=== PATIENT | male | born 1960 | race African-American/Black ===

== ENCOUNTER 2021-01-04 10:54 | Inpatient (IN) | payer OTHER, SELFPAY ==
[2021-01-04 11:49] LABS: #Eosinphils 0.2 10x3/uL (0.0-0.5); #Monocytes 1.2 10x3/uL (0.0-1.1); #Neutrophils 8.9 10x3/uL (1.5-8.4); %Basophils 0.3 % (0.0-2.0); %Eosinophils 1.4 % (0.0-6.0); %Lymphocytes 10.1 % (18.0-47.0); %Monocytes 10.4 % (0.0-10.0); %Neutrophils 77.3 % (40.0-75.0); Hemoglobin 17.2 g/dL (13.5-17.5); Mean Corpuscular HGB CONC 35.8 g/dL (32.0-36.0); Mean Corpuscular Hemoglobin 32.4 pg (27.0-33.0); Mean Corpuscular Volume 90.4 fl (81.2-95.1); Mean Platelet Volume 12.2 fl (7.4-10.4); Platelet Count 222 10x3/uL (150-450); RBC Distribution Width 11.9 % (11.5-14.5); Red Blood Cell (RBC) Count 5.31 10x6/uL (4.32-5.72); White Blood Cell (WBC) Count 11.5 10x3/uL (3.5-10.5)
[2021-01-04] MEDS ORDERED: Morphine 4 MG/ML VIAL ONE (11:49)
[2021-01-04] MEDS ORDERED: Ondansetron PF 4 MG/2 ML Vial ONE (11:49)
[2021-01-04 13:53] LABS: ALT (SGPT) 25 U/L (8-55); AST (SGOT) 26 U/L (5-34); Albumin 3.6 g/dL (3.5-5.0); Alkaline Phosphatase 81 U/L (40-110); Anion Gap 15 mmol/L (10-20); BUN (Urea Nitrogen) 16 mg/dL (8.4-25.7); Bilirubin, Total 1.2 mg/dL (0.2-1.2); CK (CPK) 39 U/L (30-200); Calc. Creatinine Clearance 0 mL/min (70-130); Calcium 9.4 mg/dL (7.8-10.44); Carbon Dioxide 28 mmol/L (22-29); Chloride 95 mmol/L (98-107); Globulin 2.8 g/dL (2.4-3.5); Glucose 102 mg/dL (70-105); Lipase 22 U/L (8-78); Protein, Total 6.4 g/dL (6.0-8.3); Sodium 135 mmol/L (136-145)
[2021-01-04 14:45] LABS: Bilirubin Neg (Negative); Blood, Urine Negative (Negative); Clarity Clear (Clear); Glucose, Urine (Dipstick) Normal (Negative); Ketone, Urine 50 mg/dL (Negative); Leukocyte Negative (Negative); Nitrite Negative (Negative); Protein, Urine (Dipstick) 15 mg/dl (Neg-Trace); Urobilinogen Normal mg/dL (Less than 2)
[2021-01-04] MEDS ORDERED: Piperacillin/Tazobactam 3.375 GM VIAL ONE (15:06)
[2021-01-04] MEDS ORDERED: Potassium Chloride 20 MEQ TAB ONE (15:06)
[2021-01-04] MEDS ORDERED: Acetaminophen 325 MG TAB PO PRN (15:46)
[2021-01-04 16:47] LABS: Magnesium 1.9 mg/dL (1.6-2.6)
[2021-01-04] MEDS ORDERED: Piperacillin/Tazobactam 3.375 GM in Sodium Chloride 0.9% 100 ML IVPB SCH ×2 (18:00→21:30)
[2021-01-04 19:23] LABS: SARS-CoV-2 NAA Rapid Test Not Detected (NotDetected)
[2021-01-04] MEDS ORDERED: Multivit, Therapeutic 1 TAB PO SCH (21:00)
[2021-01-04] MEDS ORDERED: Amlodipine 10 MG TAB PO SCH (21:00)
[2021-01-04] MEDS ORDERED: Folic Acid 1 MG TAB PO SCH (21:00)
[2021-01-04 22:36] VITALS: BMI 31.9
[2021-01-04] MEDS: Morphine 2 MG/ML VIAL SLOW IVP PRN (23:12)
[2021-01-05] MEDS: Lactated Ringer's 1,000 ML IV SCH ×3 (00:33→17:31)
[2021-01-05] MEDS: HYDROcodone/Acetaminophen 10/325 mg Tablet PO PRN ×3 (00:48→20:35)
[2021-01-05] MEDS ORDERED: Piperacillin/Tazobactam 3.375 GM in Sodium Chloride 0.9% 100 ML IVPB SCH (01:30)
[2021-01-05] MEDS ORDERED: Multivit, Therapeutic 1 TAB PO SCH (02:30)
[2021-01-05] MEDS: Piperacillin/Tazobactam 3.375 GM in Sodium Chloride 0.9% 100 ML IVPB SCH ×3 (03:15→18:46)
[2021-01-05] MEDS ORDERED: Piperacillin/Tazobactam 3.375 GM VIAL ONE (03:22)
[2021-01-05 06:11] LABS: #Eosinphils 0.2 10x3/uL (0.0-0.5); #Neutrophils 6.7 10x3/uL (1.5-8.4); %Basophils 0.2 % (0.0-2.0); %Eosinophils 2.4 % (0.0-6.0); %Lymphocytes 11.3 % (18.0-47.0); %Monocytes 11.4 % (0.0-10.0); %Neutrophils 74.3 % (40.0-75.0); Hemoglobin 15.4 g/dL (13.5-17.5); Mean Corpuscular HGB CONC 35.3 g/dL (32.0-36.0); Mean Corpuscular Hemoglobin 32.8 pg (27.0-33.0); Mean Corpuscular Volume 92.8 fl (81.2-95.1); Platelet Count 207 10x3/uL (150-450); RBC Distribution Width 11.9 % (11.5-14.5)
[2021-01-05 06:14] LABS: Anion Gap 19 mmol/L (10-20); BUN (Urea Nitrogen) 16 mg/dL (8.4-25.7); Calc. Creatinine Clearance 126 mL/min (70-130); Calcium 9.3 mg/dL (7.8-10.44); Carbon Dioxide 22 mmol/L (22-29); Chloride 101 mmol/L (98-107); Glucose 101 mg/dL (70-105); Sodium 139 mmol/L (136-145)
[2021-01-05] MEDS ORDERED: Potassium Chloride 40 MEQ in Premix Bag 1 BAG IVPB SCH (08:30)
[2021-01-05] MEDS: Folic Acid 1 MG TAB PO SCH (08:52)
[2021-01-05] MEDS: Thiamine 100 MG TAB PO SCH (08:52)
[2021-01-05] MEDS: Amlodipine 10 MG TAB PO SCH (08:52)
[2021-01-05] MEDS: Multivit, Therapeutic 1 TAB PO SCH (08:53)
[2021-01-05] MEDS ORDERED: Prevnar 13-Val Conj/PF 0.5 ML SYRINGE IM ONE (09:00)
[2021-01-05] MEDS: Potassium Chloride 20 MEQ in Premix Bag 1 BAG IVPB SCH ×3 (12:22→14:34)
[2021-01-06] MEDS: Morphine 2 MG/ML VIAL SLOW IVP PRN (02:00)
[2021-01-06] MEDS: Lactated Ringer's 1,000 ML IV SCH ×2 (02:03→14:51)
[2021-01-06] MEDS: HYDROcodone/Acetaminophen 10/325 mg Tablet PO PRN ×2 (02:46→08:44)
[2021-01-06] MEDS: Ondansetron PF 4 MG/2 ML Vial IVP PRN (02:47)
[2021-01-06] MEDS: Piperacillin/Tazobactam 3.375 GM in Sodium Chloride 0.9% 100 ML IVPB SCH ×3 (04:18→21:19)
[2021-01-06 08:28] LABS: Mean Corpuscular HGB CONC 33.9 g/dL (32.0-36.0); Mean Corpuscular Hemoglobin 32.4 pg (27.0-33.0); Mean Corpuscular Volume 95.6 fl (81.2-95.1); Mean Platelet Volume 11.7 fl (7.4-10.4); Platelet Count 236 10x3/uL (150-450); RBC Distribution Width 11.9 % (11.5-14.5); Red Blood Cell (RBC) Count 5.25 10x6/uL (4.32-5.72); White Blood Cell (WBC) Count 10.6 10x3/uL (3.5-10.5)
[2021-01-06 08:37] LABS: Anion Gap 20 mmol/L (10-20); BUN (Urea Nitrogen) 15 mg/dL (8.4-25.7); Calc. Creatinine Clearance 108 mL/min (70-130); Calcium 9.6 mg/dL (7.8-10.44); Carbon Dioxide 20 mmol/L (22-29); Chloride 101 mmol/L (98-107); Glucose 137 mg/dL (70-105); Potassium 3.6 mmol/L (3.5-5.1); Sodium 137 mmol/L (136-145)
[2021-01-06] MEDS: Folic Acid 1 MG TAB PO SCH (08:39)
[2021-01-06] MEDS: Thiamine 100 MG TAB PO SCH (08:39)
[2021-01-06] MEDS: Multivit, Therapeutic 1 TAB PO SCH (08:40)
[2021-01-06] MEDS: Amlodipine 10 MG TAB PO SCH (08:40)
[2021-01-06 09:23] LABS: Band 7 % (5-11); Lymphocytes 4 % (21-51); MDiff Complete? YES; Monocytes 5 % (0-10); Neutrophil 83 % (42-75); Reactive Lymphocytes 1 % (0-10)
[2021-01-06 09:24] LABS: Large Platelets SLIGHT; Platelet Morphology Comment Appears Adequate; RBC Morphology Normal
[2021-01-06] MEDS ORDERED: ePHEDrine Sulfate 50 MG/10 ML VIAL ONE (14:44)
[2021-01-06] MEDS ORDERED: PROPOFOL 20 ML ONE (14:44)
[2021-01-06] MEDS ORDERED: Lidocaine 1% PF 5 ML VIAL ONE (14:45)
[2021-01-06] MEDS ORDERED: Ondansetron PF 4 MG/2 ML Vial ONE (14:45)
[2021-01-06] MEDS ORDERED: Rocuronium Bromide 10 MG/ML (10ML VIAL) ONE (14:45)
[2021-01-06] MEDS ORDERED: Dexamethasone 4 mg/ml Vial ONE (14:46)
[2021-01-06] MEDS ORDERED: Fentanyl 250 MCG/5 ML VIAL ONE (14:47)
[2021-01-06] MEDS ORDERED: Succinylcholine 200 MG/10 ml SYRINGE FS ONE (14:50)
[2021-01-06] MEDS ORDERED: PHENYLEPHRINE-NS 100 MCG/ML 10 ML SYRINGE ONE (15:21)
[2021-01-06] MEDS ORDERED: Bupivacaine PF 0.5% 30 ML VIAL ONE (16:22)
[2021-01-06] MEDS ORDERED: Albumin 5% 250 ML ONE (17:47)
[2021-01-06] MEDS ORDERED: HYDROmorphone 10 MG in Sodium Chloride 0.9% 95 ML IVPB PRN (19:00)
[2021-01-06] MEDS ORDERED: Ondansetron PF 4 MG/2 ML Vial IVP PRN (19:00)
[2021-01-06] MEDS ORDERED: Naloxone HCl 0.4 mg/ml Vial IV PRN (19:00)
[2021-01-06] MEDS ORDERED: HYDROMORPHONE HCL IVPB PRN (20:16)
[2021-01-06] MEDS ORDERED: SODIUM CHLORIDE 0.9% IVPB PRN (20:16)
[2021-01-07] MEDS: Piperacillin/Tazobactam 3.375 GM in Sodium Chloride 0.9% 100 ML IVPB SCH ×3 (03:59→18:17)
[2021-01-07] MEDS: Lactated Ringer's 1,000 ML IV SCH ×3 (04:46→23:14)
[2021-01-07] MEDS: Thiamine 100 MG TAB PO SCH (08:16)
[2021-01-07] MEDS: Folic Acid 1 MG TAB PO SCH (08:16)
[2021-01-07] MEDS: Multivit, Therapeutic 1 TAB PO SCH (08:16)
[2021-01-07] MEDS: Amlodipine 10 MG TAB PO SCH (08:17)
[2021-01-07 10:23] LABS: Hemoglobin 15.2 g/dL (13.5-17.5); Mean Corpuscular HGB CONC 34.2 g/dL (32.0-36.0); Mean Corpuscular Hemoglobin 32.5 pg (27.0-33.0); Mean Corpuscular Volume 95.1 fl (81.2-95.1); Mean Platelet Volume 12.2 fl (7.4-10.4); Platelet Count 210 10x3/uL (150-450); RBC Distribution Width 12.4 % (11.5-14.5); Red Blood Cell (RBC) Count 4.68 10x6/uL (4.32-5.72); White Blood Cell (WBC) Count 12.2 10x3/uL (3.5-10.5)
[2021-01-07 10:28] LABS: Anion Gap 18 mmol/L (10-20); BUN (Urea Nitrogen) 12 mg/dL (8.4-25.7); Calc. Creatinine Clearance 123 mL/min (70-130); Calcium 8.7 mg/dL (7.8-10.44); Carbon Dioxide 22 mmol/L (22-29); Glucose 138 mg/dL (70-105); Potassium 3.7 mmol/L (3.5-5.1); Sodium 140 mmol/L (136-145)
[2021-01-07 10:33] LABS: Chloride 104 mmol/L (98-107)
[2021-01-07 11:13] LABS: MDiff Complete? YES
[2021-01-07 11:16] LABS: Band 12 % (5-11); Lymphocytes 11 % (21-51); Monocytes 10 % (0-10); Neutrophil 66 % (42-75); Reactive Lymphocytes 1 % (0-10)
[2021-01-07 11:17] LABS: Platelet Morphology Comment Appears Adequate; RBC Morphology Normal
[2021-01-07] MEDS ORDERED: HYDROmorphone HCL/PF 10 MG in Sodium Chloride 0.9% 49 ML IVPB PRN (13:15)
[2021-01-07] MEDS: Ondansetron PF 4 MG/2 ML Vial IVP PRN (23:09)
[2021-01-08] MEDS: Piperacillin/Tazobactam 3.375 GM in Sodium Chloride 0.9% 100 ML IVPB SCH ×3 (02:48→19:00)
[2021-01-08 06:31] LABS: #Neutrophils 15.3 10x3/uL (1.5-8.4); %Basophils 0.2 % (0.0-2.0); %Eosinophils 0.1 % (0.0-6.0); %Lymphocytes 3.7 % (18.0-47.0); %Monocytes 5.9 % (0.0-10.0); %Neutrophils 89.2 % (40.0-75.0); Hemoglobin 16.9 g/dL (13.5-17.5); Mean Corpuscular HGB CONC 33.9 g/dL (32.0-36.0); Mean Corpuscular Hemoglobin 32.1 pg (27.0-33.0); Mean Corpuscular Volume 94.7 fl (81.2-95.1); Mean Platelet Volume 11.4 fl (7.4-10.4); Platelet Count 230 10x3/uL (150-450); RBC Distribution Width 12.2 % (11.5-14.5); Red Blood Cell (RBC) Count 5.27 10x6/uL (4.32-5.72); White Blood Cell (WBC) Count 17.1 10x3/uL (3.5-10.5)
[2021-01-08 06:49] LABS: Anion Gap 18 mmol/L (10-20); BUN (Urea Nitrogen) 10 mg/dL (8.4-25.7); Calc. Creatinine Clearance 147 mL/min (70-130); Calcium 9.4 mg/dL (7.8-10.44); Carbon Dioxide 21 mmol/L (22-29); Chloride 105 mmol/L (98-107); Glucose 129 mg/dL (70-105); Potassium 3.4 mmol/L (3.5-5.1); Sodium 141 mmol/L (136-145)
[2021-01-08] MEDS: Folic Acid 1 MG TAB PO SCH (08:46)
[2021-01-08] MEDS: Lactated Ringer's 1,000 ML IV SCH ×2 (08:46→18:42)
[2021-01-08] MEDS: Multivit, Therapeutic 1 TAB PO SCH (08:46)
[2021-01-08] MEDS: Amlodipine 10 MG TAB PO SCH (08:46)
[2021-01-08] MEDS: Thiamine 100 MG TAB PO SCH (08:46)
[2021-01-08] MEDS ORDERED: Potassium Chloride 20 MEQ TAB PO SCH (09:15)
[2021-01-08] MEDS ORDERED: Piperacillin/Tazobactam 3.375 GM VIAL ONE (10:32)
[2021-01-08] MEDS: cloNIDine 0.1 MG TAB PO SCH (21:22)
[2021-01-09] MEDS ORDERED: Promethazine HCl 12.5 MG, Admixture Fee 1 EACH in Sodium Chloride 0.9% 50 ML IVPB PRN
[2021-01-09] MEDS: Piperacillin/Tazobactam 3.375 GM in Sodium Chloride 0.9% 100 ML IVPB SCH ×3 (03:45→18:30)
[2021-01-09] MEDS: Lactated Ringer's 1,000 ML IV SCH (06:00)
[2021-01-09 07:19] LABS: #Eosinphils 0.1 10x3/uL (0.0-0.5); #Neutrophils 13.7 10x3/uL (1.5-8.4); %Basophils 0.3 % (0.0-2.0); %Eosinophils 0.3 % (0.0-6.0); %Lymphocytes 5.8 % (18.0-47.0); %Monocytes 6.2 % (0.0-10.0); %Neutrophils 86.3 % (40.0-75.0); Mean Corpuscular Hemoglobin 32.1 pg (27.0-33.0); Mean Corpuscular Volume 94.2 fl (81.2-95.1); Mean Platelet Volume 11.4 fl (7.4-10.4); Platelet Count 285 10x3/uL (150-450); RBC Distribution Width 12.2 % (11.5-14.5); Red Blood Cell (RBC) Count 4.99 10x6/uL (4.32-5.72); White Blood Cell (WBC) Count 15.9 10x3/uL (3.5-10.5)
[2021-01-09 07:26] LABS: Anion Gap 14 mmol/L (10-20); BUN (Urea Nitrogen) 12 mg/dL (8.4-25.7); Calc. Creatinine Clearance 151 mL/min (70-130); Calcium 9.7 mg/dL (7.8-10.44); Carbon Dioxide 28 mmol/L (22-29); Chloride 102 mmol/L (98-107); Glucose 141 mg/dL (70-105); Potassium 3.3 mmol/L (3.5-5.1); Sodium 141 mmol/L (136-145)
[2021-01-09] MEDS: Multivit, Therapeutic 1 TAB PO SCH (08:57)
[2021-01-09] MEDS: Folic Acid 1 MG TAB PO SCH (08:57)
[2021-01-09] MEDS: cloNIDine 0.1 MG TAB PO SCH ×2 (08:57→22:25)
[2021-01-09] MEDS: Thiamine 100 MG TAB PO SCH (08:57)
[2021-01-09] MEDS: Amlodipine 10 MG TAB PO SCH (08:57)
[2021-01-09] MEDS ORDERED: Lactated Ringer's 1,000 ML IV SCH (09:59)
[2021-01-09] MEDS ORDERED: Potassium Chloride 20 MEQ TAB PO SCH ×2 (10:00→19:00)
[2021-01-09] MEDS ORDERED: hydrALAZINE 25 MG TAB PO SCH (10:30)
[2021-01-09 13:29] LABS: Anion Gap 13 mmol/L (10-20); BUN (Urea Nitrogen) 14 mg/dL (8.4-25.7); Calc. Creatinine Clearance 143 mL/min (70-130); Calcium 9.7 mg/dL (7.8-10.44); Carbon Dioxide 28 mmol/L (22-29); Chloride 102 mmol/L (98-107); Glucose 133 mg/dL (70-105); Potassium 3.1 mmol/L (3.5-5.1); Sodium 140 mmol/L (136-145)
[2021-01-09] MEDS ORDERED: HYDROcodone/Acetaminophen 5/325 mg Tablet PO PRN (15:05)
[2021-01-09] MEDS ORDERED: Morphine 2 MG/ML VIAL SLOW IVP PRN (15:05)
[2021-01-09] MEDS ORDERED: Potassium Chloride 20 MEQ in Lactated Ringer's 1,000 ML IV SCH (21:00)
[2021-01-09] MEDS: hydrALAZINE 25 MG TAB PO SCH (22:24)
[2021-01-10] MEDS: Piperacillin/Tazobactam 3.375 GM in Sodium Chloride 0.9% 100 ML IVPB SCH (03:34)
[2021-01-10 05:58] LABS: Anion Gap 14 mmol/L (10-20); BUN (Urea Nitrogen) 15 mg/dL (8.4-25.7); Calc. Creatinine Clearance 139 mL/min (70-130); Calcium 9.5 mg/dL (7.8-10.44); Carbon Dioxide 27 mmol/L (22-29); Chloride 101 mmol/L (98-107); Glucose 117 mg/dL (70-105); Potassium 3.2 mmol/L (3.5-5.1); Sodium 139 mmol/L (136-145)
[2021-01-10 06:09] LABS: #Eosinphils 0.3 10x3/uL (0.0-0.5); #Monocytes 1.1 10x3/uL (0.0-1.1); #Neutrophils 12.3 10x3/uL (1.5-8.4); %Basophils 0.3 % (0.0-2.0); %Eosinophils 1.7 % (0.0-6.0); %Lymphocytes 8.1 % (18.0-47.0); %Monocytes 7.5 % (0.0-10.0); %Neutrophils 81.8 % (40.0-75.0); Hemoglobin 15.2 g/dL (13.5-17.5); Mean Corpuscular HGB CONC 33.5 g/dL (32.0-36.0); Mean Corpuscular Hemoglobin 31.9 pg (27.0-33.0); Mean Corpuscular Volume 95.2 fl (81.2-95.1); Mean Platelet Volume 11.3 fl (7.4-10.4); Platelet Count 272 10x3/uL (150-450); RBC Distribution Width 12.4 % (11.5-14.5); Red Blood Cell (RBC) Count 4.77 10x6/uL (4.32-5.72)
[2021-01-10] MEDS: Multivit, Therapeutic 1 TAB PO SCH (09:15)
[2021-01-10] MEDS: Folic Acid 1 MG TAB PO SCH (09:15)
[2021-01-10] MEDS: Thiamine 100 MG TAB PO SCH (09:15)
[2021-01-10] MEDS: Potassium Chloride 20 MEQ TAB PO SCH ×2 (09:15→15:05)
[2021-01-10] MEDS: cloNIDine 0.1 MG TAB PO SCH ×2 (09:15→21:56)
[2021-01-10] MEDS: Amlodipine 10 MG TAB PO SCH (09:15)
[2021-01-10] MEDS: hydrALAZINE 25 MG TAB PO SCH ×5 (09:15→22:09)
[2021-01-10 13:29] LABS: Magnesium 2.1 mg/dL (1.6-2.6); Potassium 4.3 mmol/L (3.5-5.1)
[2021-01-10] MEDS: Famotidine 20 MG TAB PO SCH (21:55)
[2021-01-11] MEDS: Famotidine 20 MG TAB PO SCH ×2 (10:13→21:32)
[2021-01-11] MEDS: Multivit, Therapeutic 1 TAB PO SCH (10:13)
[2021-01-11] MEDS: Folic Acid 1 MG TAB PO SCH (10:13)
[2021-01-11] MEDS: cloNIDine 0.1 MG TAB PO SCH ×2 (10:13→21:32)
[2021-01-11] MEDS: Thiamine 100 MG TAB PO SCH (10:13)
[2021-01-11] MEDS: hydrALAZINE 25 MG TAB PO SCH ×3 (10:13→21:31)
[2021-01-11] MEDS: Amlodipine 10 MG TAB PO SCH (10:14)
[2021-01-11] MEDS: Potassium Chloride 20 MEQ TAB PO SCH (10:14)
[2021-01-11 10:42] LABS: #Basophils 0.1 10x3/uL (0.0-0.2); #Eosinphils 0.3 10x3/uL (0.0-0.5); #Monocytes 0.9 10x3/uL (0.0-1.1); #Neutrophils 12.9 10x3/uL (1.5-8.4); %Basophils 0.4 % (0.0-2.0); %Lymphocytes 9.4 % (18.0-47.0); %Monocytes 5.7 % (0.0-10.0); %Neutrophils 81.2 % (40.0-75.0); Hemoglobin 15.2 g/dL (13.5-17.5); Mean Corpuscular HGB CONC 33.9 g/dL (32.0-36.0); Mean Corpuscular Hemoglobin 32.3 pg (27.0-33.0); Mean Corpuscular Volume 95.1 fl (81.2-95.1); Mean Platelet Volume 11.5 fl (7.4-10.4); Platelet Count 290 10x3/uL (150-450); RBC Distribution Width 12.2 % (11.5-14.5); Red Blood Cell (RBC) Count 4.71 10x6/uL (4.32-5.72); White Blood Cell (WBC) Count 15.9 10x3/uL (3.5-10.5)
[2021-01-11 10:50] LABS: Anion Gap 12 mmol/L (10-20); BUN (Urea Nitrogen) 15 mg/dL (8.4-25.7); Calc. Creatinine Clearance 129 mL/min (70-130); Calcium 9.7 mg/dL (7.8-10.44); Carbon Dioxide 27 mmol/L (22-29); Chloride 102 mmol/L (98-107); Glucose 121 mg/dL (70-105); Magnesium 2.1 mg/dL (1.6-2.6); Potassium 3.8 mmol/L (3.5-5.1); Sodium 137 mmol/L (136-145)
[2021-01-11 17:22] LABS: SARS-CoV-2 PCR by NAA Not Detected (NotDetected)
[2021-01-12 07:31] VITALS: TEMP 98.4
[2021-01-12] MEDS: Amlodipine 10 MG TAB PO SCH (09:12)
[2021-01-12] MEDS: cloNIDine 0.1 MG TAB PO SCH (09:13)
[2021-01-12] MEDS: Folic Acid 1 MG TAB PO SCH (09:13)
[2021-01-12] MEDS: Famotidine 20 MG TAB PO SCH (09:13)
[2021-01-12] MEDS: Potassium Chloride 20 MEQ TAB PO SCH (09:13)
[2021-01-12] MEDS: Multivit, Therapeutic 1 TAB PO SCH (09:13)
[2021-01-12] MEDS: hydrALAZINE 25 MG TAB PO SCH (09:13)
[2021-01-12] MEDS: Thiamine 100 MG TAB PO SCH (09:13)
[2021-01-12 09:16] VITALS: BP 123/75
== END 2021-01-12 12:37 | disposition home or self-care (01) | DRG 329 ==
LOC: CSHERS 10:54 → CSHTELE 20:40 → OBSVTOIN 01-05 16:56
PROVIDERS: ADMIT Internal Medicine; ATTEND Internal Medicine
PROC: 0DTF0ZZ Resection of Right Large Intestine, Open Approach (ICD-10-PCS; principal; 2021-01-06)
PROC: 0DTN0ZZ Resection of Sigmoid Colon, Open Approach (ICD-10-PCS; 2021-01-06)
PROC: 0DBU0ZZ Excision of Omentum, Open Approach (ICD-10-PCS; 2021-01-06)
PROC: 0D1B0Z4 Bypass Ileum to Cutaneous, Open Approach (ICD-10-PCS; 2021-01-06)
DX: K57.20 Diverticulitis of large intestine with perforation and abscess without bleeding (principal); K65.9 Peritonitis, unspecified; K55.039 Acute (reversible) ischemia of large intestine, extent unspecified; E87.6 Hypokalemia; Z20.822 Contact with and (suspected) exposure to COVID-19; I10 Essential (primary) hypertension; F10.10 Alcohol abuse, uncomplicated; Z79.899 Other long term (current) drug therapy; Z91.010 Allergy to peanuts; Z91.018 Allergy to other foods
CPT/HCPCS: 0240U; 36415; 74177; 80048; 80053; 81003; 82378; 82550; 83690; 83735; 85025; 88307; 94760; 96365; 96375; 96376; G0378; J1100; J1170; J2270; J2405; J2543; J2550; J2704; J3010; J3480; J3490; J7120; P9045; S0020; U0003; U0005

== ENCOUNTER 2021-01-15 08:11 | Emergency (ER) | payer OTHER, SELFPAY | END 2021-01-15 20:24 | disposition home or self-care (01) | LOC: CSHERS 08:11 | DX: Z43.3 Encounter for attention to colostomy (principal); I10 Essential (primary) hypertension; E78.5 Hyperlipidemia, unspecified | CPT/HCPCS: 99283 ==

== ENCOUNTER 2021-01-22 23:01 | Inpatient (IN) | payer OTHER, SELFPAY ==
[2021-01-22 23:36] LABS: #Eosinphils 0.2 10x3/uL (0.0-0.5); #Monocytes 0.8 10x3/uL (0.0-1.1); #Neutrophils 8.5 10x3/uL (1.5-8.4); %Basophils 0.1 % (0.0-2.0); %Eosinophils 2.2 % (0.0-6.0); %Lymphocytes 12.1 % (18.0-47.0); %Monocytes 6.9 % (0.0-10.0); %Neutrophils 78.4 % (40.0-75.0); Hemoglobin 13.3 g/dL (13.5-17.5); Mean Corpuscular HGB CONC 33.8 g/dL (32.0-36.0); Mean Corpuscular Hemoglobin 31.9 pg (27.0-33.0); Mean Corpuscular Volume 94.2 fl (81.2-95.1); Mean Platelet Volume 11.8 fl (7.4-10.4); Platelet Count 220 10x3/uL (150-450); RBC Distribution Width 11.9 % (11.5-14.5); Red Blood Cell (RBC) Count 4.17 10x6/uL (4.32-5.72); White Blood Cell (WBC) Count 10.8 10x3/uL (3.5-10.5)
[2021-01-22 23:56] LABS: ALT (SGPT) 31 U/L (8-55); AST (SGOT) 16 U/L (5-34); Albumin 3.6 g/dL (3.5-5.0); Alkaline Phosphatase 131 U/L (40-110); Anion Gap 15 mmol/L (10-20); BUN (Urea Nitrogen) 6 mg/dL (8.4-25.7); Bilirubin, Total 0.5 mg/dL (0.2-1.2); Calc. Creatinine Clearance 0 mL/min (70-130); Calcium 9.5 mg/dL (7.8-10.44); Carbon Dioxide 24 mmol/L (22-29); Chloride 103 mmol/L (98-107); Globulin 2.8 g/dL (2.4-3.5); Glucose 127 mg/dL (70-105); Potassium 3.6 mmol/L (3.5-5.1); Protein, Total 6.4 g/dL (6.0-8.3); Sodium 138 mmol/L (136-145)
[2021-01-23] MEDS ORDERED: Morphine 4 MG/ML VIAL ONE (00:55)
[2021-01-23] MEDS ORDERED: Cefepime 2 GM VIAL ONE (00:55)
[2021-01-23] MEDS ORDERED: Vancomycin 1.5 GRAM/300 ML BAG 1.5 GM in Premix Bag 1 BAG IVPB SCH (01:15)
[2021-01-23] MEDS ORDERED: Enoxaparin Sodium 100 MG/ML SYRINGE ONE (01:46)
[2021-01-23] MEDS ORDERED: Ondansetron ODT 4 MG TAB PO PRN (02:58)
[2021-01-23] MEDS ORDERED: Senokot S 8.6-50 MG TAB PO PRN (02:58)
[2021-01-23] MEDS ORDERED: Ondansetron PF 4 MG/2 ML Vial IVP PRN (02:58)
[2021-01-23] MEDS ORDERED: HYDROcodone/Acetaminophen 5/325 mg Tablet PO PRN (02:58)
[2021-01-23 05:17] LABS: #Eosinphils 0.1 10x3/uL (0.0-0.5); #Monocytes 0.8 10x3/uL (0.0-1.1); #Neutrophils 8.4 10x3/uL (1.5-8.4); %Basophils 0.1 % (0.0-2.0); %Eosinophils 1.2 % (0.0-6.0); %Lymphocytes 11.5 % (18.0-47.0); %Monocytes 7.7 % (0.0-10.0); %Neutrophils 79.1 % (40.0-75.0); Hemoglobin 12.5 g/dL (13.5-17.5); Mean Corpuscular HGB CONC 33.9 g/dL (32.0-36.0); Mean Corpuscular Volume 94.4 fl (81.2-95.1); Mean Platelet Volume 12.3 fl (7.4-10.4); Platelet Count 201 10x3/uL (150-450); RBC Distribution Width 11.9 % (11.5-14.5); Red Blood Cell (RBC) Count 3.91 10x6/uL (4.32-5.72); White Blood Cell (WBC) Count 10.7 10x3/uL (3.5-10.5)
[2021-01-23 05:19] LABS: Anion Gap 15 mmol/L (10-20); BUN (Urea Nitrogen) 6 mg/dL (8.4-25.7); Calc. Creatinine Clearance 0 mL/min (70-130); Calcium 9.1 mg/dL (7.8-10.44); Carbon Dioxide 24 mmol/L (22-29); Chloride 105 mmol/L (98-107); Glucose 112 mg/dL (70-105); Magnesium 1.4 mg/dL (1.6-2.6); Potassium 3.7 mmol/L (3.5-5.1); Sodium 140 mmol/L (136-145)
[2021-01-23 05:28] LABS: Troponin I Less than 0.010 ng/mL (< 0.028)
[2021-01-23 05:29] LABS: INR-International Normal Ratio 1.1; PTT 31.1 sec (22.0-33.0); Prothrombin Time 12.1 sec (9.5-12.1)
[2021-01-23 08:53] LABS: SARS-CoV-2 NAA Rapid Test Not Detected (NotDetected)
[2021-01-23] MEDS: Tamsulosin HCl 0.4 MG CAP PO SCH (09:20)
[2021-01-23] MEDS: Thiamine 100 MG TAB PO SCH (09:20)
[2021-01-23] MEDS: Multivitamin W/ Minerals 1 TAB PO SCH (09:20)
[2021-01-23] MEDS: Folic Acid 1 MG TAB PO SCH (09:20)
[2021-01-23] MEDS: metFORMIN 500 MG TAB PO SCH ×2 (09:20→18:30)
[2021-01-23] MEDS: Amlodipine 10 MG TAB PO SCH (09:21)
[2021-01-23] MEDS: Carvedilol 12.5 MG TAB PO SCH ×2 (09:21→18:30)
[2021-01-23] MEDS: NS 0.9% w/ 20 MEQ KCL 1,000 ML/1,000 ML BAG IV SCH (12:27)
[2021-01-23] MEDS: Cefepime 2 GM in Sodium Chloride 0.9% 100 ML IVPB SCH (12:28)
[2021-01-23] MEDS: Enoxaparin Sodium 100 MG/ML SYRINGE SC SCH (14:30)
[2021-01-23] MEDS: VANCOMYCIN 1.25 GM/250 ML BAG 1.25 GM in Premix Bag 1 BAG IVPB SCH (14:31)
[2021-01-23] MEDS ORDERED: Magnesium 2 GM/50 ML 2 GM in Premix Bag 1 BAG IVPB SCH (17:30)
[2021-01-23] MEDS: Atorvastatin Calcium 20 MG TAB PO SCH (21:33)
[2021-01-24] MEDS: Cefepime 2 GM in Sodium Chloride 0.9% 100 ML IVPB SCH ×2 (00:40→11:52)
[2021-01-24] MEDS: NS 0.9% w/ 20 MEQ KCL 1,000 ML/1,000 ML BAG IV SCH ×5 (00:41→11:52)
[2021-01-24] MEDS: VANCOMYCIN 1.25 GM/250 ML BAG 1.25 GM in Premix Bag 1 BAG IVPB SCH ×2 (02:27→11:52)
[2021-01-24] MEDS: Enoxaparin Sodium 100 MG/ML SYRINGE SC SCH (02:28)
[2021-01-24] MEDS: metFORMIN 500 MG TAB PO SCH ×2 (06:53→09:02)
[2021-01-24] MEDS: Carvedilol 12.5 MG TAB PO SCH ×2 (06:53→09:01)
[2021-01-24] MEDS: Folic Acid 1 MG TAB PO SCH (09:01)
[2021-01-24] MEDS: Multivitamin W/ Minerals 1 TAB PO SCH (09:01)
[2021-01-24] MEDS: Thiamine 100 MG TAB PO SCH (09:01)
[2021-01-24] MEDS: Amlodipine 10 MG TAB PO SCH (09:02)
[2021-01-24] MEDS: Tamsulosin HCl 0.4 MG CAP PO SCH (09:02)
[2021-01-24 09:39] LABS: Anion Gap 10 mmol/L (10-20); BUN (Urea Nitrogen) 8 mg/dL (8.4-25.7); Calc. Creatinine Clearance 111 mL/min (70-130); Calcium 9.1 mg/dL (7.8-10.44); Carbon Dioxide 27 mmol/L (22-29); Chloride 107 mmol/L (98-107); Glucose 98 mg/dL (70-105); Magnesium 1.8 mg/dL (1.6-2.6); Potassium 4.1 mmol/L (3.5-5.1); Sodium 140 mmol/L (136-145)
[2021-01-24] MEDS ORDERED: Magnesium 2 GM/50 ML 2 GM in Premix Bag 1 BAG IVPB SCH (11:00)
[2021-01-24] MEDS: Enoxaparin Sodium 80 MG/0.8 ML SYRINGE SC SCH ×2 (13:20→13:55)
[2021-01-24 14:24] VITALS: BMI 28.3
[2021-01-24] MEDS: Atorvastatin Calcium 20 MG TAB PO SCH (21:21)
[2021-01-25] MEDS: NS 0.9% w/ 20 MEQ KCL 1,000 ML/1,000 ML BAG IV SCH ×2 (00:09→04:26)
[2021-01-25] MEDS: Enoxaparin Sodium 80 MG/0.8 ML SYRINGE SC SCH (00:10)
[2021-01-25] MEDS: Cefepime 2 GM in Sodium Chloride 0.9% 100 ML IVPB SCH (00:10)
[2021-01-25] MEDS: VANCOMYCIN 1.25 GM/250 ML BAG 1.25 GM in Premix Bag 1 BAG IVPB SCH (00:45)
[2021-01-25 03:56] LABS: #Eosinphils 0.5 10x3/uL (0.0-0.5); #Monocytes 0.4 10x3/uL (0.0-1.1); #Neutrophils 4.3 10x3/uL (1.5-8.4); %Basophils 0.3 % (0.0-2.0); %Eosinophils 7.3 % (0.0-6.0); %Lymphocytes 15.3 % (18.0-47.0); %Monocytes 6.8 % (0.0-10.0); Hemoglobin 12.4 g/dL (13.5-17.5); Mean Corpuscular HGB CONC 33.2 g/dL (32.0-36.0); Mean Corpuscular Hemoglobin 31.1 pg (27.0-33.0); Mean Corpuscular Volume 93.5 fl (81.2-95.1); Mean Platelet Volume 12.7 fl (7.4-10.4); Platelet Count 159 10x3/uL (150-450); RBC Distribution Width 11.8 % (11.5-14.5); Red Blood Cell (RBC) Count 3.99 10x6/uL (4.32-5.72); White Blood Cell (WBC) Count 6.2 10x3/uL (3.5-10.5)
[2021-01-25 04:00] LABS: Anion Gap 13 mmol/L (10-20); BUN (Urea Nitrogen) 9 mg/dL (8.4-25.7); Calc. Creatinine Clearance 125 mL/min (70-130); Calcium 9.2 mg/dL (7.8-10.44); Carbon Dioxide 21 mmol/L (22-29); Chloride 107 mmol/L (98-107); Glucose 95 mg/dL (70-105); Potassium 3.9 mmol/L (3.5-5.1); Sodium 137 mmol/L (136-145)
[2021-01-25] MEDS: metFORMIN 500 MG TAB PO SCH ×2 (07:11→08:40)
[2021-01-25] MEDS: Carvedilol 12.5 MG TAB PO SCH ×2 (07:11→08:39)
[2021-01-25 07:31] VITALS: BP 153/92; TEMP 98.5
[2021-01-25] MEDS: Tamsulosin HCl 0.4 MG CAP PO SCH (08:39)
[2021-01-25] MEDS: Thiamine 100 MG TAB PO SCH (08:39)
[2021-01-25] MEDS: Amlodipine 10 MG TAB PO SCH (08:39)
[2021-01-25] MEDS: Multivitamin W/ Minerals 1 TAB PO SCH (08:39)
[2021-01-25] MEDS: Folic Acid 1 MG TAB PO SCH (08:40)
== END 2021-01-25 11:01 | disposition home or self-care (01) | DRG 299 ==
LOC: CSHERS 23:01 → CSHERHOLD 01-23 03:28 → OBSVTOIN 01-23 03:29 → CSHTELE 01-23 08:01
PROVIDERS: ADMIT Family Medicine; ATTEND Family Medicine
DX: T81.718A Complication of other artery following a procedure, not elsewhere classified, initial encounter (principal); J18.9 Pneumonia, unspecified organism; I26.99 Other pulmonary embolism without acute cor pulmonale; Z20.822 Contact with and (suspected) exposure to COVID-19; I10 Essential (primary) hypertension; F10.10 Alcohol abuse, uncomplicated; E87.6 Hypokalemia; R91.8 Other nonspecific abnormal finding of lung field; E11.9 Type 2 diabetes mellitus without complications; N40.0 Benign prostatic hyperplasia without lower urinary tract symptoms; E78.5 Hyperlipidemia, unspecified; Y95 Nosocomial condition; Z79.84 Long term (current) use of oral hypoglycemic drugs; Z79.899 Other long term (current) drug therapy
CPT/HCPCS: 36415; 71045; 71275; 80048; 80053; 80202; 83735; 83880; 84484; 85025; 85379; 85610; 85730; 93005; 93010; 93306; 93970; 96365; 96366; 96367; 96372; 96375; J0692; J1650; J1956; J2270; J3370; J3475; J3480; J3490; U0002

== ENCOUNTER 2021-03-24 16:47 | Emergency (ER) | payer SELFPAY | END 2021-03-24 17:33 | disposition home or self-care (01) | LOC: CSHERS 16:47 | DX: K94.01 Colostomy hemorrhage (principal); I10 Essential (primary) hypertension; E78.5 Hyperlipidemia, unspecified; K56.609 Unspecified intestinal obstruction, unspecified as to partial versus complete obstruction; F17.220 Nicotine dependence, chewing tobacco, uncomplicated; Z79.01 Long term (current) use of anticoagulants | CPT/HCPCS: 99283 ==

== ENCOUNTER 2021-03-26 18:16 | Emergency (ER) | payer SELFPAY | END 2021-03-26 20:11 | disposition home or self-care (01) | LOC: CSHERS 18:16 | DX: K94.03 Colostomy malfunction (principal); I10 Essential (primary) hypertension; E78.6 Lipoprotein deficiency; K56.609 Unspecified intestinal obstruction, unspecified as to partial versus complete obstruction; F17.220 Nicotine dependence, chewing tobacco, uncomplicated; Z79.899 Other long term (current) drug therapy; Z79.84 Long term (current) use of oral hypoglycemic drugs | CPT/HCPCS: 99282 ==

== ENCOUNTER 2021-11-02 16:06 | Emergency (ER) | payer BC ==
[2021-11-02 17:29] LABS: Chloride 108 mmol/L (98-107); Potassium 3.8 mmol/L (3.5-5.1); Sodium 140 mmol/L (136-145)
[2021-11-02 17:32] LABS: #Eosinphils 0.3 10x3/uL (0.0-0.5); #Monocytes 0.8 10x3/uL (0.0-1.1); #Neutrophils 6.2 10x3/uL (1.5-8.4); %Basophils 0.1 % (0.0-2.0); %Eosinophils 3.1 % (0.0-6.0); %Lymphocytes 19.2 % (18.0-47.0); %Monocytes 8.6 % (0.0-10.0); %Neutrophils 68.7 % (40.0-75.0); Hemoglobin 14.2 g/dL (13.5-17.5); Mean Corpuscular HGB CONC 33.5 g/dL (32.0-36.0); Mean Corpuscular Hemoglobin 30.8 pg (27.0-33.0); Mean Platelet Volume 12.1 fl (7.4-10.4); Platelet Count 132 10x3/uL (150-450); RBC Distribution Width 12.3 % (11.5-14.5); Red Blood Cell (RBC) Count 4.61 10x6/uL (4.32-5.72)
[2021-11-02 17:35] LABS: PTT 59.2 sec (22.0-33.0); Prothrombin Time 46.5 sec (9.5-12.1)
[2021-11-02 17:36] LABS: INR-International Normal Ratio 4.7
[2021-11-02 17:57] LABS: AST (SGOT) 31 U/L (5-34); Albumin 4.3 g/dL (3.5-5.0); Alkaline Phosphatase 128 U/L (40-110); BUN (Urea Nitrogen) 13 mg/dL (8.4-25.7); Bilirubin, Total 0.5 mg/dL (0.2-1.2); Calc. Creatinine Clearance 0 mL/min (70-130); Carbon Dioxide 20 mmol/L (22-29); Globulin 2.5 g/dL (2.4-3.5); Glucose 98 mg/dL (70-105); Protein, Total 6.8 g/dL (6.0-8.3)
[2021-11-02 17:58] LABS: ALT (SGPT) 24 U/L (8-55)
[2021-11-02 18:03] LABS: Anion Gap 16 mmol/L (10-20)
== END 2021-11-02 19:15 | disposition home or self-care (01) ==
LOC: CSHERS 16:06
DX: K64.4 Residual hemorrhoidal skin tags (principal); R79.1 Abnormal coagulation profile; I10 Essential (primary) hypertension; E78.5 Hyperlipidemia, unspecified; F17.220 Nicotine dependence, chewing tobacco, uncomplicated
CPT/HCPCS: 36415; 80053; 83605; 85025; 85610; 85730; 86850; 86900; 86901; 99283

== ENCOUNTER 2022-02-02 18:05 | Emergency (ER) | payer BC, OTHER ==
[~2022-02-02 18:05] MED LIST: Iopamidol 300 61% 100 ML VIAL FS ONE
[2022-02-02 19:04] LABS: #Eosinphils 0.2 10x3/uL (0.0-0.5); #Monocytes 0.5 10x3/uL (0.0-1.1); #Neutrophils 4.9 10x3/uL (1.5-8.4); %Basophils 0.1 % (0.0-2.0); %Eosinophils 2.6 % (0.0-6.0); %Lymphocytes 22.5 % (18.0-47.0); %Monocytes 6.9 % (0.0-10.0); %Neutrophils 67.6 % (40.0-75.0); Hemoglobin 14.6 g/dL (13.5-17.5); Mean Corpuscular HGB CONC 35.4 g/dL (32.0-36.0); Mean Corpuscular Hemoglobin 31.3 pg (27.0-33.0); Mean Corpuscular Volume 88.6 fl (81.2-95.1); Mean Platelet Volume 12.2 fl (7.4-10.4); Platelet Count 142 10x3/uL (150-450); RBC Distribution Width 12.9 % (11.5-14.5); Red Blood Cell (RBC) Count 4.66 10x6/uL (4.32-5.72); White Blood Cell (WBC) Count 7.2 10x3/uL (3.5-10.5)
[2022-02-02 19:16] LABS: ALT (SGPT) 27 U/L (8-55); AST (SGOT) 28 U/L (5-34); Albumin 4.3 g/dL (3.5-5.0); Alkaline Phosphatase 131 U/L (40-110); Anion Gap 15 mmol/L (10-20); BUN (Urea Nitrogen) 8 mg/dL (8.4-25.7); Bilirubin, Total 0.5 mg/dL (0.2-1.2); Calc. Creatinine Clearance 0 mL/min (70-130); Calcium 8.8 mg/dL (7.8-10.44); Carbon Dioxide 21 mmol/L (22-29); Chloride 104 mmol/L (98-107); Estimated GFR 57; Globulin 2.7 g/dL (2.4-3.5); Glucose 104 mg/dL (70-105); Lipase 51 U/L (8-78); Potassium 3.8 mmol/L (3.5-5.1); Sodium 136 mmol/L (136-145)
[2022-02-02] MEDS ORDERED: Ketorolac Tromethamine 30 MG/ML VIAL ONE (19:19)
== END 2022-02-02 20:35 | disposition home or self-care (01) ==
LOC: CSHERS 18:05
DX: K62.5 Hemorrhage of anus and rectum (principal); E78.5 Hyperlipidemia, unspecified; I10 Essential (primary) hypertension; F17.200 Nicotine dependence, unspecified, uncomplicated; Z79.899 Other long term (current) drug therapy
CPT/HCPCS: 74177; 80053; 83690; 85025; 96374; J1885; Q9967

== ENCOUNTER 2022-02-18 20:31 | Emergency (ER) | payer OTHER ==
[2022-02-18 21:57] LABS: #Eosinphils 0.2 10x3/uL (0.0-0.5); #Monocytes 0.5 10x3/uL (0.0-1.1); #Neutrophils 4.4 10x3/uL (1.5-8.4); %Basophils 0.3 % (0.0-2.0); %Eosinophils 2.9 % (0.0-6.0); %Lymphocytes 24.6 % (18.0-47.0); %Monocytes 6.7 % (0.0-10.0); %Neutrophils 64.9 % (40.0-75.0); Hemoglobin 14.5 g/dL (13.5-17.5); Mean Corpuscular HGB CONC 34.6 g/dL (32.0-36.0); Mean Corpuscular Hemoglobin 31.5 pg (27.0-33.0); Mean Corpuscular Volume 90.9 fl (81.2-95.1); Mean Platelet Volume 12.6 fl (7.4-10.4); Platelet Count 123 10x3/uL (150-450); RBC Distribution Width 13.1 % (11.5-14.5); Red Blood Cell (RBC) Count 4.61 10x6/uL (4.32-5.72); White Blood Cell (WBC) Count 6.8 10x3/uL (3.5-10.5)
[2022-02-18 22:08] LABS: Bilirubin Neg (Negative); Blood, Urine Negative (Negative); Clarity Clear (Clear); Glucose, Urine (Dipstick) Normal (Negative); Ketone, Urine Negative (Negative); Leukocyte Negative (Negative); Nitrite Negative (Negative); Protein, Urine (Dipstick) Negative (Neg-Trace); Specific Gravity, Urine 1.005 (1.005-1.030); Urobilinogen Normal mg/dL (Less than 2)
[2022-02-18 22:13] LABS: Acetaminophen Less than 10.0 mcg/mL (10.0-30.0); Alcohol 235 mg/dL (Less than 10); Salicylate Less than 8.0 mg/dL (15.0-30.0)
[2022-02-18 22:19] LABS: ALT (SGPT) 31 U/L (8-55); AST (SGOT) 33 U/L (5-34); Albumin 4.4 g/dL (3.5-5.0); Alkaline Phosphatase 157 U/L (40-110); Anion Gap 17 mmol/L (10-20); BUN (Urea Nitrogen) 9 mg/dL (8.4-25.7); Bilirubin, Total 0.3 mg/dL (0.2-1.2); Calc. Creatinine Clearance 0 mL/min (70-130); Calcium 9.2 mg/dL (7.8-10.44); Carbon Dioxide 17 mmol/L (22-29); Chloride 110 mmol/L (98-107); Estimated GFR 69; Globulin 2.9 g/dL (2.4-3.5); Glucose 112 mg/dL (70-105); Lipase 59 U/L (8-78); Potassium 4.1 mmol/L (3.5-5.1); Protein, Total 7.3 g/dL (6.0-8.3); Sodium 140 mmol/L (136-145)
== END 2022-02-19 00:13 | disposition home or self-care (01) ==
LOC: CSHERS 20:31
DX: K92.1 Melena (principal); F10.129 Alcohol abuse with intoxication, unspecified; E11.9 Type 2 diabetes mellitus without complications; K21.9 Gastro-esophageal reflux disease without esophagitis; E78.5 Hyperlipidemia, unspecified; I10 Essential (primary) hypertension; F17.220 Nicotine dependence, chewing tobacco, uncomplicated; Z79.899 Other long term (current) drug therapy; Z79.84 Long term (current) use of oral hypoglycemic drugs
CPT/HCPCS: 71045; 74177; 80053; 80307; 81003; 83690; 84484; 85025; 93005; Q9967

== ENCOUNTER 2022-03-08 08:38 | Emergency (ER) | payer BC ==
[2022-03-08] MEDS ORDERED: Ketorolac Tromethamine 30 MG/ML VIAL ONE (09:37)
[2022-03-08 09:47] LABS: #Eosinphils 0.2 10x3/uL (0.0-0.5); #Monocytes 0.5 10x3/uL (0.0-1.1); #Neutrophils 5.3 10x3/uL (1.5-8.4); %Basophils 0.3 % (0.0-2.0); %Eosinophils 2.1 % (0.0-6.0); %Lymphocytes 14.1 % (18.0-47.0); %Monocytes 7.4 % (0.0-10.0); Hemoglobin 15.8 g/dL (13.5-17.5); Mean Corpuscular Hemoglobin 31.7 pg (27.0-33.0); Mean Corpuscular Volume 90.6 fl (81.2-95.1); Mean Platelet Volume 12.3 fl (7.4-10.4); Platelet Count 132 10x3/uL (150-450); RBC Distribution Width 12.9 % (11.5-14.5); Red Blood Cell (RBC) Count 4.99 10x6/uL (4.32-5.72)
[2022-03-08 09:50] LABS: Bilirubin Neg (Negative); Blood, Urine Negative (Negative); Clarity Clear (Clear); Glucose, Urine (Dipstick) Normal (Negative); Ketone, Urine Negative (Negative); Leukocyte Negative (Negative); Nitrite Negative (Negative); Protein, Urine (Dipstick) 30 mg/dl (Neg-Trace); Urobilinogen Normal mg/dL (Less than 2)
[2022-03-08 10:00] LABS: RBC/HPF 0-3 HPF (0-3); WBC/HPF None Seen HPF (0-3)
[2022-03-08 10:01] LABS: Bacteria/HPF None Seen HPF (None Seen); Squamous Epithelial None Seen HPF (0-3)
[2022-03-08 10:06] LABS: ALT (SGPT) 27 U/L (8-55); AST (SGOT) 32 U/L (5-34); Albumin 4.3 g/dL (3.5-5.0); Alkaline Phosphatase 109 U/L (40-110); Anion Gap 13 mmol/L (10-20); BUN (Urea Nitrogen) 14 mg/dL (8.4-25.7); Bilirubin, Total 0.9 mg/dL (0.2-1.2); Calc. Creatinine Clearance 0 mL/min (70-130); Calcium 9.5 mg/dL (7.8-10.44); Carbon Dioxide 24 mmol/L (22-29); Chloride 105 mmol/L (98-107); Estimated GFR 68; Globulin 2.8 g/dL (2.4-3.5); Glucose 107 mg/dL (70-105); Potassium 4.1 mmol/L (3.5-5.1); Protein, Total 7.1 g/dL (6.0-8.3); Sodium 138 mmol/L (136-145)
== END 2022-03-08 11:43 | disposition home or self-care (01) ==
LOC: CSHERS 08:38
DX: R10.9 Unspecified abdominal pain (principal); E11.9 Type 2 diabetes mellitus without complications; K21.9 Gastro-esophageal reflux disease without esophagitis; E78.5 Hyperlipidemia, unspecified; I10 Essential (primary) hypertension; F17.220 Nicotine dependence, chewing tobacco, uncomplicated
CPT/HCPCS: 36415; 74176; 80053; 81003; 81015; 85025; 96374; J1885

== ENCOUNTER 2022-05-15 08:04 | Emergency (ER) | payer BC ==
[2022-05-15 09:01] LABS: SARS-CoV-2 NAA Rapid Test Not Detected (NotDetected)
== END 2022-05-15 08:38 | disposition home or self-care (01) ==
LOC: CSHERS 08:04
DX: J06.9 Acute upper respiratory infection, unspecified (principal); E11.9 Type 2 diabetes mellitus without complications; I10 Essential (primary) hypertension; E78.5 Hyperlipidemia, unspecified; K21.9 Gastro-esophageal reflux disease without esophagitis; F17.220 Nicotine dependence, chewing tobacco, uncomplicated; Z20.822 Contact with and (suspected) exposure to COVID-19
CPT/HCPCS: 99283

== ENCOUNTER 2022-07-19 19:30 | Emergency (ER) | payer BC, MEDICAID ==
[2022-07-19 20:34] LABS: Bilirubin Neg (Negative); Blood, Urine Negative (Negative); Clarity Clear (Clear); Glucose, Urine (Dipstick) Normal (Negative); Ketone, Urine Negative (Negative); Leukocyte Negative (Negative); Nitrite Negative (Negative); Protein, Urine (Dipstick) 30 mg/dl (Neg-Trace); Urobilinogen Normal mg/dL (Less than 2)
[2022-07-19 20:43] LABS: Anion Gap 18 mmol/L (10-20); BUN (Urea Nitrogen) 15 mg/dL (8.4-25.7); Calc. Creatinine Clearance 0 mL/min (70-130); Calcium 9.4 mg/dL (7.8-10.44); Carbon Dioxide 15 mmol/L (22-29); Chloride 110 mmol/L (98-107); Estimated GFR 69; Glucose 91 mg/dL (70-105); Potassium 3.9 mmol/L (3.5-5.1); Sodium 139 mmol/L (136-145)
[2022-07-19 20:46] LABS: Bacteria/HPF Rare-Few HPF (None Seen); RBC/HPF 0-3 HPF (0-3); Squamous Epithelial 0-3 HPF (0-3); WBC/HPF 0-3 HPF (0-3)
== END 2022-07-20 00:13 | disposition home or self-care (01) ==
LOC: CSHERS 19:30
DX: R33.9 Retention of urine, unspecified (principal); E11.9 Type 2 diabetes mellitus without complications; K21.9 Gastro-esophageal reflux disease without esophagitis; I10 Essential (primary) hypertension; E78.00 Pure hypercholesterolemia, unspecified; F17.220 Nicotine dependence, chewing tobacco, uncomplicated; Z79.01 Long term (current) use of anticoagulants; Z79.84 Long term (current) use of oral hypoglycemic drugs; Z79.899 Other long term (current) drug therapy
CPT/HCPCS: 36415; 80048; 81003; 81015; 93005

== ENCOUNTER 2022-12-06 10:19 | Emergency (ER) | payer BC, OTHER ==
[2022-12-06 12:08] LABS: #Eosinphils 0.2 10x3/uL (0.0-0.5); #Monocytes 0.5 10x3/uL (0.0-1.1); #Neutrophils 7.2 10x3/uL (1.5-8.4); %Basophils 0.2 % (0.0-2.0); %Eosinophils 1.8 % (0.0-6.0); %Lymphocytes 12.3 % (18.0-47.0); %Monocytes 5.6 % (0.0-10.0); %Neutrophils 79.8 % (40.0-75.0); Hemoglobin 16.4 g/dL (13.5-17.5); Mean Corpuscular HGB CONC 34.2 g/dL (32.0-36.0); Mean Corpuscular Hemoglobin 31.8 pg (27.0-33.0); Mean Corpuscular Volume 93.2 fl (81.2-95.1); Mean Platelet Volume 12.6 fl (7.4-10.4); Platelet Count 126 10x3/uL (150-450); RBC Distribution Width 12.5 % (11.5-14.5); Red Blood Cell (RBC) Count 5.15 10x6/uL (4.32-5.72)
[2022-12-06 12:22] LABS: ALT (SGPT) 35 U/L (8-55); AST (SGOT) 29 U/L (5-34); Albumin 4.5 g/dL (3.5-5.0); Alkaline Phosphatase 128 U/L (40-110); Anion Gap 13 mmol/L (10-20); BUN (Urea Nitrogen) 16 mg/dL (8.4-25.7); Bilirubin, Total 1.1 mg/dL (0.2-1.2); Calc. Creatinine Clearance 0 mL/min (70-130); Calcium 9.5 mg/dL (7.8-10.44); Carbon Dioxide 24 mmol/L (22-29); Chloride 103 mmol/L (98-107); Estimated GFR 63; Globulin 2.7 g/dL (2.4-3.5); Glucose 140 mg/dL (70-105); Lipase 230 U/L (8-78); Potassium 3.8 mmol/L (3.5-5.1); Protein, Total 7.2 g/dL (6.0-8.3); Sodium 136 mmol/L (136-145)
[2022-12-06 12:57] LABS: Magnesium 1.6 mg/dL (1.6-2.6)
== END 2022-12-06 12:39 | disposition left against medical advice (07) ==
LOC: CSHERS 10:19
DX: R10.30 Lower abdominal pain, unspecified (principal); E11.9 Type 2 diabetes mellitus without complications; K21.9 Gastro-esophageal reflux disease without esophagitis; I10 Essential (primary) hypertension; E78.5 Hyperlipidemia, unspecified; F17.220 Nicotine dependence, chewing tobacco, uncomplicated
CPT/HCPCS: 36415; 80053; 83690; 83735; 85025; 99284

== ENCOUNTER 2022-12-17 09:13 | Emergency (ER) | payer BC, OTHER ==
[2022-12-17] MEDS ORDERED: Ketorolac Tromethamine 30 MG/ML VIAL ONE (10:01)
[2022-12-17] MEDS ORDERED: Ondansetron PF 4 MG/2 ML Vial ONE (10:02)
[2022-12-17] MEDS ORDERED: Acetaminophen 500 MG TAB ONE (10:20)
[2022-12-17 10:33] LABS: #Eosinphils 0.1 10x3/uL (0.0-0.5); #Monocytes 0.4 10x3/uL (0.0-1.1); %Basophils 0.1 % (0.0-2.0); %Eosinophils 1.7 % (0.0-6.0); %Lymphocytes 7.8 % (18.0-47.0); %Monocytes 5.9 % (0.0-10.0); %Neutrophils 84.4 % (40.0-75.0); Hemoglobin 15.2 g/dL (13.5-17.5); Mean Corpuscular Hemoglobin 31.7 pg (27.0-33.0); Mean Corpuscular Volume 90.6 fl (81.2-95.1); Mean Platelet Volume 12.1 fl (7.4-10.4); Platelet Count 122 10x3/uL (150-450); RBC Distribution Width 12.6 % (11.5-14.5); Red Blood Cell (RBC) Count 4.79 10x6/uL (4.32-5.72); White Blood Cell (WBC) Count 7.1 10x3/uL (3.5-10.5)
[2022-12-17 10:53] LABS: Carbon Dioxide 23 mmol/L (22-29); Chloride 107 mmol/L (98-107); Potassium 3.6 mmol/L (3.5-5.1); Sodium 139 mmol/L (136-145)
[2022-12-17 10:54] LABS: Anion Gap 13 mmol/L (10-20); BUN (Urea Nitrogen) 12 mg/dL (8.4-25.7); Calc. Creatinine Clearance 0 mL/min (70-130); Estimated GFR 89
[2022-12-17 10:55] LABS: ALT (SGPT) 59 U/L (8-55); AST (SGOT) 41 U/L (5-34); Albumin 3.7 g/dL (3.5-5.0); Alkaline Phosphatase 130 U/L (40-110); Bilirubin, Total 0.7 mg/dL (0.2-1.2); Calcium 8.7 mg/dL (7.6-10.4); Globulin 2.3 g/dL (2.4-3.5); Glucose 126 mg/dL (70-105); Lipase 43 U/L (8-78)
[2022-12-17 11:19] LABS: Bilirubin Neg (Negative); Blood, Urine Negative (Negative); Clarity Clear (Clear); Glucose, Urine (Dipstick) 50 mg/dL (Negative); Ketone, Urine Negative (Negative); Leukocyte Negative (Negative); Nitrite Negative (Negative); Protein, Urine (Dipstick) 15 mg/dl (Neg-Trace); Urobilinogen Normal mg/dL (Less than 2)
[2022-12-17 11:32] LABS: Bacteria/HPF Rare-Few HPF (None Seen); CAUTI Indications for Culture Pelvic or flank pain; RBC/HPF 0-3 HPF (0-3); Squamous Epithelial 0-3 HPF (0-3); WBC/HPF None Seen HPF (0-3)
[2022-12-17 11:34] LABS: Urine Culture Reflex No No
== END 2022-12-17 12:23 | disposition home or self-care (01) ==
LOC: CSHERS 09:13
DX: K76.9 Liver disease, unspecified (principal); R94.5 Abnormal results of liver function studies; K51.20 Ulcerative (chronic) proctitis without complications; D69.6 Thrombocytopenia, unspecified; E11.9 Type 2 diabetes mellitus without complications; K21.9 Gastro-esophageal reflux disease without esophagitis; I10 Essential (primary) hypertension; E78.5 Hyperlipidemia, unspecified
CPT/HCPCS: 74177; 80053; 81001; 83690; 85025; 93005; 96361; 96374; J1885; J2405; Q9967

== ENCOUNTER 2023-06-17 10:16 | Emergency (ER) | payer BC, OTHER ==
[2023-06-17 11:11] LABS: #Monocytes 0.8 10x3/uL (0.0-1.1); #Neutrophils 4.5 10x3/uL (1.5-8.4); %Basophils 0.3 % (0.0-2.0); %Eosinophils 0.5 % (0.0-6.0); %Lymphocytes 8.8 % (18.0-47.0); %Neutrophils 76.1 % (40.0-75.0); Hematocrit 49.3 % (38.8-50.0); Hemoglobin 16.9 g/dL (13.5-17.5); Mean Corpuscular HGB CONC 34.3 g/dL (32.0-36.0); Mean Corpuscular Hemoglobin 32.1 pg (27.0-33.0); Mean Corpuscular Volume 93.5 fl (81.2-95.1); Mean Platelet Volume 12.6 fl (7.4-10.4); Platelet Count 120 10x3/uL (150-450); RBC Distribution Width 13.7 % (11.5-14.5); Red Blood Cell (RBC) Count 5.27 10x6/uL (4.32-5.72); White Blood Cell (WBC) Count 5.9 10x3/uL (3.5-10.5)
[2023-06-17 11:24] LABS: ALT (SGPT) 29 U/L (8-55); AST (SGOT) 41 U/L (5-34); Albumin 3.9 g/dL (3.4-4.8); Alkaline Phosphatase 86 U/L (40-110); Anion Gap 13 mmol/L (10-20); BUN (Urea Nitrogen) 14 mg/dL (8.4-25.7); Bilirubin, Total 0.6 mg/dL (0.2-1.2); Calc. Creatinine Clearance 0 mL/min (70-130); Calcium 8.4 mg/dL (7.8-10.44); Carbon Dioxide 24 mmol/L (23-31); Chloride 103 mmol/L (98-107); Estimated GFR 47; Globulin 2.1 g/dL (2.4-3.5); Glucose 114 mg/dL (80-115); Lipase 85 U/L (8-78); Potassium 4.3 mmol/L (3.5-5.1); Sodium 136 mmol/L (136-145)
[2023-06-17 11:26] LABS: Troponin I Less than 0.010 ng/mL (< 0.028)
[2023-06-17 11:36] LABS: SARS-CoV-2 NAA Rapid Test Not Detected (NotDetected)
== END 2023-06-17 17:28 | disposition home or self-care (01) ==
LOC: CSHERS 10:16
DX: J10.1 Influenza due to other identified influenza virus with other respiratory manifestations (principal); I10 Essential (primary) hypertension; E11.9 Type 2 diabetes mellitus without complications; F17.290 Nicotine dependence, other tobacco product, uncomplicated
CPT/HCPCS: 36415; 71045; 80053; 83605; 83690; 83880; 84484; 85025; 87040; 93005

== ENCOUNTER 2023-06-26 10:51 | Emergency (ER) | payer BC, OTHER ==
[2023-06-26 11:20] LABS: #Eosinphils 0.2 10x3/uL (0.0-0.5); #Monocytes 0.8 10x3/uL (0.0-1.1); #Neutrophils 8.4 10x3/uL (1.5-8.4); %Basophils 0.1 % (0.0-2.0); %Eosinophils 1.8 % (0.0-6.0); %Lymphocytes 7.9 % (18.0-47.0); %Monocytes 7.4 % (0.0-10.0); %Neutrophils 82.2 % (40.0-75.0); Hematocrit 49.1 % (38.8-50.0); Hemoglobin 17.3 g/dL (13.5-17.5); Mean Corpuscular HGB CONC 35.2 g/dL (32.0-36.0); Mean Corpuscular Hemoglobin 31.7 pg (27.0-33.0); Mean Corpuscular Volume 89.9 fl (81.2-95.1); Mean Platelet Volume 12.4 fl (7.4-10.4); Platelet Count 177 10x3/uL (150-450); RBC Distribution Width 12.9 % (11.5-14.5); Red Blood Cell (RBC) Count 5.46 10x6/uL (4.32-5.72); White Blood Cell (WBC) Count 10.3 10x3/uL (3.5-10.5)
[2023-06-26 11:37] LABS: ALT (SGPT) 21 U/L (8-55); AST (SGOT) 21 U/L (5-34); Alkaline Phosphatase 114 U/L (40-110); Anion Gap 13 mmol/L (10-20); BUN (Urea Nitrogen) 13 mg/dL (8.4-25.7); Bilirubin, Total 0.6 mg/dL (0.2-1.2); Calc. Creatinine Clearance 0 mL/min (70-130); Calcium 8.7 mg/dL (7.8-10.44); Carbon Dioxide 19 mmol/L (23-31); Chloride 109 mmol/L (98-107); Estimated GFR 82; Globulin 2.3 g/dL (2.4-3.5); Glucose 98 mg/dL (80-115); Potassium 4.4 mmol/L (3.5-5.1); Protein, Total 6.3 g/dL (5.8-8.1); Sodium 137 mmol/L (136-145)
[2023-06-26 11:40] LABS: Troponin I Less than 0.010 ng/mL (< 0.028)
== END 2023-06-26 14:26 | disposition home or self-care (01) ==
LOC: CSHERS 10:51
DX: J10.1 Influenza due to other identified influenza virus with other respiratory manifestations (principal); K21.9 Gastro-esophageal reflux disease without esophagitis; E11.9 Type 2 diabetes mellitus without complications; I10 Essential (primary) hypertension; E78.5 Hyperlipidemia, unspecified; Z79.01 Long term (current) use of anticoagulants; Z79.899 Other long term (current) drug therapy; Z79.84 Long term (current) use of oral hypoglycemic drugs
CPT/HCPCS: 36415; 71045; 80053; 83880; 84484; 85025; 93005

== ENCOUNTER 2024-03-09 21:11 | Emergency (ER) | payer BC | END 2024-03-09 21:53 | disposition left against medical advice (07) | LOC: CSHERS 21:11 | DX: Z53.21 Procedure and treatment not carried out due to patient leaving prior to being seen by health care provider (principal) ==